=== PATIENT | male | born 1960 | race African-American/Black ===

== ENCOUNTER 2018-07-09 18:14 | Emergency (ER) | payer MEDICARE, MEDICAID ==
[~2018-07-09] VITALS: Ht 180.3 cm; Wt 82.0 kg
[2018-07-09] MEDS ORDERED: MORPHINE SULFATE 10 MG/ML CPJ IM ONE (22:30)
[2018-07-09] MEDS ORDERED: KETOROLAC 30MG/ML VIAL IM ONE (22:30)
[2018-07-10 01:30] VITALS: BP 127/76
== END 2018-07-10 02:02 | disposition home or self-care (01) ==
LOC: ER 18:14
DX: S16.1XXA Strain of muscle, fascia and tendon at neck level, initial encounter (principal); I10 Essential (primary) hypertension; V79.88XA Bus occupant (driver) (passenger) injured in other specified transport accidents, initial encounter; Y93.89 Activity, other specified; Y92.89 Other specified places as the place of occurrence of the external cause; Y99.8 Other external cause status
CPT/HCPCS: 72125; 96372; 99284; J1885; J2270